=== PATIENT | female | born 1960 | race Caucasian/White ===

== ENCOUNTER 2020-10-04 09:46 | Outpatient (CLI) | payer BC ==
--- NOTE | 2020-10-04 10:17 | BD ---
EXAM: DEXA bone density examination HISTORY: 59-year-old postmenopausal female for screening COMPARISON: None FINDINGS: L1--bone mineral density 0.688 g/sq cm; T score -2.7 L2--bone mineral density 0.672 g/sq cm; T score -3.2 L3--bone mineral density 0.737 g/sq cm; T score -0.2 L4--bone mineral density 0.735 g/sq cm; T score -3.0 Total L1-L4--bone mineral density 0.710 g/sq cm; T score 3.1 Left femoral neck--bone mineral density0.605; T score 2.2 Total proximal left femur--bone mineral density 0.763; T score -1.5 IMPRESSION: Osteoporosis.
== END 2020-10-04 09:47 | disposition home or self-care (01) ==
LOC: BICMAMMO 09:46
PROVIDERS: ATTEND Internal Medicine Endocrinology, Diabetes & Metabolism
DX: M81.0 Age-related osteoporosis without current pathological fracture (principal)
CPT/HCPCS: 77080

== ENCOUNTER 2021-10-16 13:26 | Outpatient (CLI) | payer BC | END 2021-10-16 13:27 | disposition home or self-care (01) | LOC: BICMAMMO 13:26 | PROVIDERS: ATTEND Internal Medicine Endocrinology, Diabetes & Metabolism | DX: M81.0 Age-related osteoporosis without current pathological fracture (principal) | CPT/HCPCS: 77080 ==

== ENCOUNTER 2021-11-02 12:44 | Outpatient (CLI) | payer BC | END 2021-11-02 12:45 | disposition home or self-care (01) | LOC: BICMAMMO 12:44 | PROVIDERS: ATTEND Family Medicine | DX: Z12.31 Encounter for screening mammogram for malignant neoplasm of breast (principal); Z80.3 Family history of malignant neoplasm of breast | CPT/HCPCS: 77063; 77067 ==

== ENCOUNTER 2022-12-26 14:26 | Outpatient (CLI) | payer BC | END 2022-12-26 14:27 | disposition home or self-care (01) | LOC: BICMAMMO 14:26 | PROVIDERS: ATTEND Internal Medicine Endocrinology, Diabetes & Metabolism | DX: M81.0 Age-related osteoporosis without current pathological fracture (principal) | CPT/HCPCS: 77080 ==

== ENCOUNTER 2023-02-07 09:53 | Outpatient (CLI) | payer BC | END 2023-02-07 09:54 | disposition home or self-care (01) | LOC: BICMAMMO 09:53 | PROVIDERS: ATTEND Family Medicine | DX: Z12.31 Encounter for screening mammogram for malignant neoplasm of breast (principal) | CPT/HCPCS: 77063; 77067 ==

== ENCOUNTER 2024-09-01 09:38 | Outpatient (CLI) | payer OTHER | END 2024-09-01 09:39 | disposition home or self-care (01) | LOC: ULT 09:38 | PROVIDERS: ATTEND Family Medicine | DX: I10 Essential (primary) hypertension (principal) | CPT/HCPCS: 76770; 93975 ==